=== PATIENT | male | born 1985 | race Two or more races ===

== ENCOUNTER 2025-01-27 17:42 | Emergency (ER) | payer OTHER ==
[~2025-01-27] VITALS: Ht 175.3 cm; Wt 76.2 kg
[2025-01-27] MEDS ORDERED: CEFTRIAXONE SODIUM 1,000 MG VIAL IM ONE (18:45)
[2025-01-27] MEDS ORDERED: PEPCID AC20 MG PO (18:47)
[2025-01-27] MEDS ORDERED: CEPHALEXIN500 M1 PO (18:47)
[2025-01-27] MEDS ORDERED: CEFTRIAXONE SODIUM 1,000 MG VIAL ONE (18:54)
== END 2025-01-27 19:29 | disposition home or self-care (01) ==
LOC: ER 17:42
DX: S20.319A Abrasion of unspecified front wall of thorax, initial encounter (principal); W19.XXXA Unspecified fall, initial encounter; Y93.I9 Activity, other involving external motion; Y92.89 Other specified places as the place of occurrence of the external cause; Y99.8 Other external cause status

== ENCOUNTER → 2025-01-27 | Emergency (ER) | payer OTHER ==
[~2025-01-27] MED LIST: CEPHALEXIN500 M1 PO; PEPCID AC20 MG PO
== END | disposition home or self-care (01) ==
LOC: ER 17:43
DX: S20.313A Abrasion of bilateral front wall of thorax, initial encounter (principal); X58.XXXA Exposure to other specified factors, initial encounter; Y93.89 Activity, other specified; Y92.89 Other specified places as the place of occurrence of the external cause; Y99.9 Unspecified external cause status